=== PATIENT | male | born 1945 | race Caucasian/White ===

== ENCOUNTER 2016-07-22 14:49 | Inpatient (IN) ==
[2016-07-22] MEDS ORDERED: *HR* OxyCODONE Immed Rel 5 MG TABLET PO PRN (16:17)
[2016-07-22] MEDS ORDERED: METAXALONE 400 MG PO PRN (17:08)
[2016-07-22] MEDS ORDERED: Ondansetron ODT 4 MG TAB.RAPDIS SL PRN (17:19)
[2016-07-22] MEDS: Gabapentin 300 MG CAPSULE PO SCH (20:41)
[2016-07-22] MEDS: Lactulose Oral Soln 20 GM/30 ML UDC PO SCH (20:41)
[2016-07-22] MEDS: Sennosides/Docusate Sodium TABLET PO SCH (20:41)
[2016-07-22] MEDS: BETHANECHOL 10 MG PO SCH (20:45)
[2016-07-22] MEDS: RIFAXIMIN 550 MG PO SCH (20:46)
[2016-07-22] MEDS: *HR* OxyCODONE Immed Rel 5 MG TABLET PO PRN (21:01)
[2016-07-23] MEDS: *HR* OxyCODONE Immed Rel 5 MG TABLET PO PRN ×4 (05:39→19:58)
[2016-07-23 06:30] LABS: Basophils % 0.3 %; Eosinophils # 0.3 K/mcL (0.0-0.6); Eosinophils % 4.4 %; Hematocrit 30.2 % (37.5-50.1); Hemoglobin 10.4 g/dL (12.9-16.9); Immature Granulocytes % 0.7 % (0-4); Lymphocytes # 1.4 K/mcL (0.6-4.6); Lymphocytes % 20.6 %; Mean Corpuscular HGB Conc 34.4 g/dL (31.6-35.5); Mean Corpuscular Hemoglobin 31.4 pg (28.0-33.3); Mean Corpuscular Volume 91.2 fL (83.0-100.0); Mean Platelet Volume 11.1 fL (9.4-12.4); Monocytes # 0.5 K/mcL (0.0-1.3); Neutrophils # 4.6 K/mcL (1.6-8.9); Red Blood Count 3.31 M/mcL (4.19-5.50); Red Cell Distribution Width 14.3 % (11.5-14.5)
[2016-07-23 06:36] LABS: INR 1.3
[2016-07-23 06:39] LABS: Activated Partial Thrombo Time 29.9 Seconds (26.0-36.0)
[2016-07-23 06:48] LABS: BUN/Creatinine Ratio 14 (6-26); Blood Urea Nitrogen 16 mg/dL (8-26); Calcium 9.3 mg/dL (8.6-10.8); Carbon Dioxide 27 mEq/L (19-29); Chloride 99 mEq/L (98-109); Glucose 106 mg/dL (70-99); Osmolality,Calculated 282 (280-300); Potassium 4.1 mEq/L (3.5-4.5); Sodium 135 mEq/L (136-145); eGFR For African Americans > 60 (> 60); eGFR For Non-African Americans > 60 (> 60)
[2016-07-23 06:53] LABS: Platelet Count 72 K/mcL (140-400)
[2016-07-23 07:02] LABS: Platelet Estimate Decreased (Normal)
[2016-07-23] MEDS: Lactulose Oral Soln 20 GM/30 ML UDC PO SCH ×2 (08:17→20:00)
[2016-07-23] MEDS: Spironolactone 25 MG TABLET PO SCH (08:18)
[2016-07-23] MEDS: Cholecalciferol (D-3) 1,000 UNIT TABLET PO SCH (08:18)
[2016-07-23] MEDS: Multivit/Ca/Min/Fe/FA 1 TAB TABLET PO SCH (08:18)
[2016-07-23] MEDS: Sennosides/Docusate Sodium TABLET PO SCH ×2 (08:18→19:57)
[2016-07-23] MEDS: BETHANECHOL 10 MG PO SCH ×3 (08:19→20:02)
[2016-07-23] MEDS: Furosemide 20 MG TABLET PO SCH (08:19)
[2016-07-23] MEDS: Finasteride 5 MG TABLET PO SCH (08:19)
[2016-07-23] MEDS: Gabapentin 300 MG CAPSULE PO SCH ×2 (08:19→19:57)
[2016-07-23] MEDS: RIFAXIMIN 550 MG PO SCH ×2 (08:20→20:02)
[2016-07-23] MEDS ORDERED: Celecoxib 100 MG CAPSULE PO SCH (09:00)
[2016-07-23] MEDS: Ibuprofen 600 MG TABLET PO PRN ×2 (12:41→18:53)
--- NOTE | 2016-07-23 20:35 | Internal Med History&Physical ---
Date of Encounter: 07/23/16 Time of Encounter: 20:28 Assessment and Plan (1) Lumbar stenosis Current visit: Yes Status: Acute Status post lumbar laminectomy, discussed pain control with the new guidelines. We will increase the gabapentin continue the Flexeril increase the Celebrex to use short acting oxycodone IR because of his liver issues (2) Bilateral radicular pain Current visit: Yes Status: Acute We will increase the Neurontin hopefully as time progressed to improve since he had surgery (3) Cirrhosis Current visit: Yes Status: Acute Continue the lactulose and start the rifaximin is on a home. If we do not carry it making using his home medicines Qualifiers: Hepatic cirrhosis type: unspecified hepatic cirrhosis Ascites presence: without ascites Qualified Code(s): K74.60 - Unspecified cirrhosis of liver (4) SCOT on CPAP Current visit: Yes Status: Acute Continue CPAP (5) GERD (gastroesophageal reflux disease) Current visit: Yes Status: Acute Continue omeprazole Qualifiers: Esophagitis presence: esophagitis presence not specified Qualified Code(s) : K21.9 - Gastro-esophageal reflux disease without esophagitis Internal Medicine - H&P: HPI Chief complaint: Lumbar fusion Admitted From: Hospital to Hospital Transfer Plans for Post Hospital Care: Home History of present illness: Mr. Irizarry is a 71 year old male was admitted to swing bed after having laminectomy. Currently right before surgery he woke up in the morning just could not move his left leg was weak he was seen at [facility] by Dr. Bennett who showed vice MRI that he had a severe stenosis. Collapse of L2 vertebrae. The surgery is helped a little and his strength is improving. He still has pain reports his pain is better not tenderness of 45 out 10 with the oxycodone 10 mg tablets. Apparently for failed back syndrome he was on oxycodone 15 mg every 6 hours at home before surgery. Had long discussion about the new guidelines for opioid prescriptions and controlled substances. Patient is a 10 heil was dying every 5 hours maximally overdosing. The first goal is to get people to chronic pain under more 80 morphine equivalent dose. The second goal which was about 4 months ago was to get the morphine equivalent dose below 50 left someone had a surgery they could have acute pain medicine for about 7 days. In his listen they were not too happy with the new guidelines. By time explaining that all they seem accepting. He is going to increase the Celebrex to twice a day and increase his Neurontin. Visit was extended explaining this. He reports dyspnea on exertion weakness fatigue and heart hearing. Eyes any chest pain shortness of breath at rest nausea vomiting diarrhea fevers chills headache bleeds rest review of systems is negative. Amylase on lactulose and Xifaxan. Past Med Surg Social Fam HX - Past Medical History Source: patient, old records reviewed, obtained from family Medical history: arthritis, cirrhosis, GERD, hyperlipidemia, hypertension, other (Esophageal varices, BPH, SCOT with CPAP, failed back syndrome) Psychiatric history: no psych history - Past Surgical History Surgical History: appendectomy, cataract (Bilateral), orthopedic, other (Right thumb tendon repair left shoulder repair, left knee arthroscopy for back surgeries), other (Cardiac catheterization 2013 were normal and a colonoscopy in 2013 showed polyps, tonsillectomy) - Social History Smoking Status: Former smoker Smokeless Tobacco Status: No Alcohol use: none Drug use: other (Daily caffeine use,,Because caffeine is a stimulant and makes one feel a boost of energy by tapping into ones reserve energy, it can lead to anxiety and panic attacks. When used routiely, it interferes with deep sleep, so the reserve energy isn't being replaced effectively which leads to tiredness , depression, higher risk of infection. I recommend patients gives up daily use. ) Occupational status: employed Current living situation: Home - Independent Activity Level: Uses cane/walker - Family History Father Cause of : [place] Mother Cause of : Stroke Internal Medicine - H&P: Meds Allergies gabapentin Adverse Reaction (Verified 10/03/15 15:05) Palpitations Penicillins Adverse Reaction (Verified 10/03/15 15:05) Hives Sulfa (Sulfonamide Antibiotics) Adverse Reaction (Verified 10/03/15 15:05) Hives All Systems PM: A 10-system review of systems was performed and is negative for pertinent findings except as documented above in the HPI. - Constitutional Vitals: Temp Pulse Resp BP Pulse Ox 98.3 F 80 18 120/74 96 07/23/16 19:37 07/23/16 19:37 07/23/16 19:37 07/23/16 19:37 07/23/16 19:37 - Head Head exam: Present: atraumatic, normocephalic - Eye Eye exam: Present: PERRL, conjuntiva pink, sclera anicteric Pupils: Present: PERRL - Neck Neck exam general surgery: Present: supple, trachea midline. Absent: lymphadenopathy - Respiratory Respiratory exam: Present: CTAB. Absent: accessory muscle use, rales, rhonchi, wheezes - Cardiovascular Cardiovascular exam: Present: RRR, +S1, +S2. Absent: diastolic murmur, gallop, rubs, systolic murmur - GI/Abdominal GI/Abdominal exam: Present: normal bowel sounds, soft, no peritoneal signs. Absent: distended, tenderness - Extremities Exam Extremities exam: Present: warm. Absent: calf tenderness, cyanotic, pedal edema - Neurological Exam Neurological exam: Present: CN II-XII intact, oriented X3, no focal deficits. Absent: facial droop, speech deficit - Skin Skin exam: Present: dry, intact Additional comments: Incision bandage is clean Internal Med - H&P Results - Labs CBC & Chem 7: 07/23/16 05:31 07/23/16 05:31 Labs: Short CBC 07/23/16 Range/Units 05:31 WBC 6.8 (4.3-11.1) K/mcL Hgb 10.4 L (12.9-16.9) g/dL Hct 30.2 L (37.5-50.1) % Plt Count 72 L (140-400) K/mcL Neutrophils # 4.6 (1.6-8.9) K/mcL BMP 07/23/16 05:31 Sodium 135 L Potassium 4.1 Chloride 99 Carbon Dioxide 27 BUN 16 Creatinine 1.12 Glucose 106 H Calcium 9.3
[2016-07-24] MEDS: Gabapentin 300 MG CAPSULE PO SCH ×4 (00:03→20:28)
[2016-07-24] MEDS: *HR* OxyCODONE Immed Rel 5 MG TABLET PO PRN ×6 (00:03→20:27)
[2016-07-24] MEDS: Celecoxib 100 MG CAPSULE PO SCH ×3 (00:04→20:32)
[2016-07-24 05:28] LABS: Hematocrit 29.7 % (37.5-50.1); Hemoglobin 10.2 g/dL (12.9-16.9); Immature Granulocytes % 0.9 % (0-4); Lymphocytes % 19.3 %; Mean Corpuscular HGB Conc 34.3 g/dL (31.6-35.5); Mean Corpuscular Hemoglobin 31.1 pg (28.0-33.3); Mean Corpuscular Volume 90.5 fL (83.0-100.0); Mean Platelet Volume 10.7 fL (9.4-12.4); Red Blood Count 3.28 M/mcL (4.19-5.50); Segmented Neutrophils % 64.6 %
[2016-07-24 05:29] LABS: Basophils % 0.4 %; Eosinophils # 0.3 K/mcL (0.0-0.6); Eosinophils % 5.8 %; Lymphocytes # 1.1 K/mcL (0.6-4.6); Monocytes # 0.5 K/mcL (0.0-1.3); Neutrophils # 3.6 K/mcL (1.6-8.9)
[2016-07-24 05:44] LABS: Platelet Count 76 K/mcL (140-400)
[2016-07-24 05:45] LABS: BUN/Creatinine Ratio 15 (6-26); Blood Urea Nitrogen 16 mg/dL (8-26); Calcium 9.3 mg/dL (8.6-10.8); Carbon Dioxide 26 mEq/L (19-29); Chloride 102 mEq/L (98-109); Glucose 122 mg/dL (70-99); Osmolality,Calculated 284 (280-300); Potassium 3.9 mEq/L (3.5-4.5); Sodium 136 mEq/L (136-145); eGFR For African Americans > 60 (> 60); eGFR For Non-African Americans > 60 (> 60)
[2016-07-24] MEDS: Multivit/Ca/Min/Fe/FA 1 TAB TABLET PO SCH (08:19)
[2016-07-24] MEDS: Finasteride 5 MG TABLET PO SCH (08:19)
[2016-07-24] MEDS: Cholecalciferol (D-3) 1,000 UNIT TABLET PO SCH (08:20)
[2016-07-24] MEDS: Sennosides/Docusate Sodium TABLET PO SCH ×2 (08:21→20:28)
[2016-07-24] MEDS: Spironolactone 25 MG TABLET PO SCH (08:22)
[2016-07-24] MEDS: Lactulose Oral Soln 20 GM/30 ML UDC PO SCH ×2 (08:23→20:28)
[2016-07-24] MEDS: Furosemide 20 MG TABLET PO SCH (08:23)
[2016-07-24] MEDS: RIFAXIMIN 550 MG PO SCH ×2 (10:49→22:34)
[2016-07-24] MEDS: BETHANECHOL 10 MG PO SCH ×3 (10:50→22:34)
--- NOTE | 2016-07-24 14:11 | Internal Med Progress Note ---
Date of Encounter: 07/24/16 Time of Encounter: 14:00 - Assessment and plan (1) Lumbar stenosis Current Visit: Yes Status: Acute Assessment and plan: July 24. Status post laminectomy with L5-S1 with fusion 07/14/2016. I will continue Celebrex and gabapentin. Will add OxyContin and continue when necessary oxycodone IR. (2) Anemia Current Visit: Yes Status: Acute Assessment and plan: July 24. Will order anemia testing in a.m. Suspect due at least in part to cirrhosis. Thrombocytopenia is also noted. Qualifiers: Anemia type: unspecified type Qualified Code(s): D64.9 - Anemia, unspecified (3) Cirrhosis Current Visit: Yes Status: Acute Assessment and plan: July 24. Continue Xifaxan and lactulose. I will decrease HCTZ to 25 mg daily. Labs will be rechecked in a.m. Qualifiers: Hepatic cirrhosis type: unspecified hepatic cirrhosis Ascites presence: without ascites Qualified Code(s): K74.60 - Unspecified cirrhosis of liver - Subjective Interval history: July 24. He reports having significant pain in his low back when he attempts to move. - Constitutional Vitals: Temp Pulse Resp BP Pulse Ox 98.0 F 82 20 117/75 96 07/24/16 07:01 07/24/16 13:51 07/24/16 13:51 07/24/16 13:51 07/24/16 13:51 Exam: He is resting in bed and appears to be in mild pain at present. His heart is regular without murmurs gallops or ectopics. Lungs are clear anteriorly. Extremities show no edema. I reviewed his past records from [facility] and his present medications and lab results. Internal Medicine: Result - Labs CBC & Chem 7: 07/24/16 05:18 07/24/16 05:18 Labs: Short CBC 07/24/16 Range/Units 05:18 WBC 5.5 (4.3-11.1) K/mcL Hgb 10.2 L (12.9-16.9) g/dL Hct 29.7 L (37.5-50.1) % Plt Count 76 L (140-400) K/mcL Neutrophils # 3.6 (1.6-8.9) K/mcL BMP 07/24/16 05:18 Sodium 136 Potassium 3.9 Chloride 102 Carbon Dioxide 26 BUN 16 Creatinine 1.04 Glucose 122 H Calcium 9.3 - ABG Interpretation ABG results: PT/INR, D-dimer PT 14.0 Seconds (9.4-12.1) H 07/23/16 05:31 Consult Discharge Plan - Plan Referrals: Edward Nieto MD [Primary Care Provider] - 1 week
[2016-07-24] MEDS: *HR* OxyCODONE ER (12 HR) 10 MG TABLET PO SCH (18:10)
[2016-07-25 05:23] LABS: Basophils % 0.5 %; Eosinophils # 0.4 K/mcL (0.0-0.6); Eosinophils % 6.7 %; Hematocrit 31.1 % (37.5-50.1); Hemoglobin 10.7 g/dL (12.9-16.9); Immature Granulocytes % 0.9 % (0-4); Lymphocytes # 1.4 K/mcL (0.6-4.6); Lymphocytes % 22.6 %; Mean Corpuscular HGB Conc 34.4 g/dL (31.6-35.5); Mean Corpuscular Hemoglobin 31.1 pg (28.0-33.3); Mean Corpuscular Volume 90.4 fL (83.0-100.0); Mean Platelet Volume 10.5 fL (9.4-12.4); Monocytes # 0.6 K/mcL (0.0-1.3); Monocytes % 9.4 %; Neutrophils # 3.8 K/mcL (1.6-8.9); Red Blood Count 3.44 M/mcL (4.19-5.50); Red Cell Distribution Width 14.2 % (11.5-14.5); Segmented Neutrophils % 59.9 %
[2016-07-25 05:24] LABS: Platelet Count 99 K/mcL (140-400)
[2016-07-25 05:29] LABS: Magnesium 1.4 mg/dL (1.6-2.6)
[2016-07-25] MEDS: *HR* OxyCODONE ER (12 HR) 10 MG TABLET PO SCH ×2 (06:41→17:41)
[2016-07-25] MEDS: *HR* OxyCODONE Immed Rel 5 MG TABLET PO PRN ×4 (08:26→22:35)
[2016-07-25] MEDS: Spironolactone 25 MG TABLET PO SCH (08:28)
[2016-07-25] MEDS: Lactulose Oral Soln 20 GM/30 ML UDC PO SCH ×2 (08:28→22:26)
[2016-07-25] MEDS: Multivit/Ca/Min/Fe/FA 1 TAB TABLET PO SCH (08:29)
[2016-07-25] MEDS: Celecoxib 100 MG CAPSULE PO SCH ×2 (08:29→22:26)
[2016-07-25] MEDS: Gabapentin 300 MG CAPSULE PO SCH ×3 (08:29→22:25)
[2016-07-25] MEDS: Furosemide 20 MG TABLET PO SCH (08:30)
[2016-07-25] MEDS: Sennosides/Docusate Sodium TABLET PO SCH ×2 (08:30→22:25)
[2016-07-25] MEDS: RIFAXIMIN 550 MG PO SCH ×2 (08:31→22:26)
[2016-07-25] MEDS: Cholecalciferol (D-3) 1,000 UNIT TABLET PO SCH (08:31)
[2016-07-25] MEDS: Finasteride 5 MG TABLET PO SCH (08:31)
[2016-07-25] MEDS: BETHANECHOL 10 MG PO SCH ×3 (08:31→22:26)
[2016-07-25 15:09] LABS: Folate 11.9 ng/mL (7.0-31.4)
[2016-07-25 15:10] LABS: Vitamin B12 > 2000 pg/mL (213-816)
[2016-07-26] MEDS: *HR* OxyCODONE Immed Rel 5 MG TABLET PO PRN ×4 (03:50→21:18)
[2016-07-26] MEDS: *HR* OxyCODONE ER (12 HR) 10 MG TABLET PO SCH ×2 (05:44→18:13)
[2016-07-26] MEDS: Spironolactone 25 MG TABLET PO SCH (09:16)
[2016-07-26] MEDS: Celecoxib 100 MG CAPSULE PO SCH ×2 (09:17→21:23)
[2016-07-26] MEDS: Lactulose Oral Soln 20 GM/30 ML UDC PO SCH ×2 (09:18→21:23)
[2016-07-26] MEDS: BETHANECHOL 10 MG PO SCH (09:19)
[2016-07-26] MEDS: Gabapentin 300 MG CAPSULE PO SCH ×3 (09:19→21:18)
[2016-07-26] MEDS: Furosemide 20 MG TABLET PO SCH (09:19)
[2016-07-26] MEDS: RIFAXIMIN 550 MG PO SCH (09:21)
[2016-07-26] MEDS: Finasteride 5 MG TABLET PO SCH (09:22)
[2016-07-26] MEDS: Sennosides/Docusate Sodium TABLET PO SCH ×2 (09:22→21:18)
[2016-07-26] MEDS: Multivit/Ca/Min/Fe/FA 1 TAB TABLET PO SCH (09:23)
[2016-07-26] MEDS: Cholecalciferol (D-3) 1,000 UNIT TABLET PO SCH (09:23)
--- NOTE | 2016-07-26 11:42 | Internal Med Progress Note ---
Date of Encounter: 07/26/16 Time of Encounter: 11:30 - Assessment and plan (1) Lumbar stenosis Current Visit: Yes Status: Acute Assessment and plan: July 24. Status post laminectomy with L5-S1 with fusion 07/14/2016. I will continue Celebrex and gabapentin. Will add OxyContin and continue when necessary oxycodone IR. July 26. Will increase OxyContin to 20 mg twice a day and continue other medicines as per present regimen. (2) Anemia Current Visit: Yes Status: Acute Assessment and plan: July 24. Will order anemia testing in a.m. Suspect due at least in part to cirrhosis. Thrombocytopenia is also noted. July 26. Anemia testing of July 25 reviewed. Continue to monitor CBC. Qualifiers: Anemia type: unspecified type Qualified Code(s): D64.9 - Anemia, unspecified (3) Cirrhosis Current Visit: Yes Status: Acute Assessment and plan: July 24. Continue Xifaxan and lactulose. I will decrease HCTZ to 25 mg daily. Labs will be rechecked in a.m. July 26. We will decrease HCTZ to 12.5 mg daily. Qualifiers: Hepatic cirrhosis type: unspecified hepatic cirrhosis Ascites presence: without ascites Qualified Code(s): K74.60 - Unspecified cirrhosis of liver (4) Hypomagnesemia Current Visit: Yes Status: Acute Assessment and plan: July 26. Probably secondary to HCTZ use. Will give supplemental magnesium oxide and decrease HCTZ as per above. - Subjective Interval history: July 24. He reports having significant pain in his low back when he attempts to move. July 26. He reports significant pain persists - Constitutional Vitals: Temp Pulse Resp BP Pulse Ox 98.7 F 87 16 122/75 93 L 07/26/16 09:14 07/26/16 09:14 07/26/16 09:14 07/26/16 09:14 07/26/16 09:14 Exam: He is lying in bed and does not appear comfortable. His speech is appropriate. He is wearing SCDs. I reviewed his medications and lab results. Internal Medicine: Result - Labs CBC & Chem 7: 07/25/16 05:09 07/24/16 05:18 - ABG Interpretation ABG results: PT/INR, D-dimer PT 14.0 Seconds (9.4-12.1) H 07/23/16 05:31 - VTE Documentation of Mechanical Device: Intermittent pneumatic compression device Consult Discharge Plan - Plan Referrals: Edward Nieto MD [Primary Care Provider] - 1 week
[2016-07-26] MEDS: Magnesium Oxide 400 MG TABLET PO SCH (14:08)
[2016-07-27] MEDS: *HR* OxyCODONE ER (12 HR) 10 MG TABLET PO SCH ×2 (06:09→18:24)
[2016-07-27] MEDS: *HR* OxyCODONE Immed Rel 5 MG TABLET PO PRN ×4 (06:09→19:30)
[2016-07-27] MEDS: Lactulose Oral Soln 20 GM/30 ML UDC PO SCH ×2 (10:40→21:28)
[2016-07-27] MEDS: Sennosides/Docusate Sodium TABLET PO SCH ×2 (10:41→21:28)
[2016-07-27] MEDS: Finasteride 5 MG TABLET PO SCH (10:41)
[2016-07-27] MEDS: Gabapentin 300 MG CAPSULE PO SCH ×3 (10:41→21:28)
[2016-07-27] MEDS: Multivit/Ca/Min/Fe/FA 1 TAB TABLET PO SCH (10:42)
[2016-07-27] MEDS: Spironolactone 25 MG TABLET PO SCH (10:42)
[2016-07-27] MEDS: Furosemide 20 MG TABLET PO SCH (10:42)
[2016-07-27] MEDS: Magnesium Oxide 400 MG TABLET PO SCH (10:42)
[2016-07-27] MEDS: Cholecalciferol (D-3) 1,000 UNIT TABLET PO SCH (10:43)
[2016-07-27] MEDS: Celecoxib 100 MG CAPSULE PO SCH (10:43)
--- NOTE | 2016-07-27 15:07 | Internal Med Progress Note ---
Date of Encounter: 07/27/16 Time of Encounter: 14:55 - Assessment and plan (1) Lumbar stenosis Current Visit: Yes Status: Acute Assessment and plan: July 24. Status post laminectomy with L5-S1 with fusion 07/14/2016. I will continue Celebrex and gabapentin. Will add OxyContin and continue when necessary oxycodone IR. July 26. Will increase OxyContin to 20 mg twice a day and continue other medicines as per present regimen. July 27. Will continue present dose OxyContin. We will change from Celebrex to Naprosyn and add Lidoderm patch daily. (2) Anemia Current Visit: Yes Status: Acute Assessment and plan: July 24. Will order anemia testing in a.m. Suspect due at least in part to cirrhosis. Thrombocytopenia is also noted. July 26. Anemia testing of July 25 reviewed. Continue to monitor CBC. Qualifiers: Anemia type: unspecified type Qualified Code(s): D64.9 - Anemia, unspecified (3) Cirrhosis Current Visit: Yes Status: Acute Assessment and plan: July 24. Continue Xifaxan and lactulose. I will decrease HCTZ to 25 mg daily. Labs will be rechecked in a.m. July 26. We will decrease HCTZ to 12.5 mg daily. July 27. His weight remains stable. Continue present regimen Qualifiers: Hepatic cirrhosis type: unspecified hepatic cirrhosis Ascites presence: without ascites Qualified Code(s): K74.60 - Unspecified cirrhosis of liver (4) Hypomagnesemia Current Visit: Yes Status: Acute Assessment and plan: July 26. Probably secondary to HCTZ use. Will give supplemental magnesium oxide and decrease HCTZ as per above. - Subjective Interval history: July 24. He reports having significant pain in his low back when he attempts to move. July 26. He reports significant pain persists July 27. He still has pain in his low back area. - Constitutional Vitals: Temp Pulse Resp BP Pulse Ox 98.3 F 84 18 129/69 93 L 07/27/16 07:22 07/27/16 10:43 07/27/16 10:43 07/27/16 10:43 07/27/16 10:43 Exam: He is lying in bed and appears in mild distress. He states there is pain when he moves his right leg. I reviewed his medications and lab results. Internal Medicine: Result - Labs CBC & Chem 7: 07/25/16 05:09 07/24/16 05:18 - ABG Interpretation ABG results: PT/INR, D-dimer PT 14.0 Seconds (9.4-12.1) H 07/23/16 05:31 - VTE Documentation of Mechanical Device: Intermittent pneumatic compression device Consult Discharge Plan - Plan Referrals: Edward Nieto MD [Primary Care Provider] - 1 week
[2016-07-28] MEDS: *HR* OxyCODONE Immed Rel 5 MG TABLET PO PRN ×5 (01:12→20:18)
[2016-07-28 05:32] LABS: Basophils % 0.5 %; Eosinophils # 0.4 K/mcL (0.0-0.6); Eosinophils % 8.8 %; Hemoglobin 9.7 g/dL (12.9-16.9); Immature Granulocytes % 0.7 % (0-4); Lymphocytes % 22.6 %; Mean Corpuscular HGB Conc 34.6 g/dL (31.6-35.5); Mean Corpuscular Hemoglobin 30.9 pg (28.0-33.3); Mean Corpuscular Volume 89.2 fL (83.0-100.0); Monocytes # 0.6 K/mcL (0.0-1.3); Neutrophils # 2.4 K/mcL (1.6-8.9); Platelet Count 119 K/mcL (140-400); Red Blood Count 3.14 M/mcL (4.19-5.50); Segmented Neutrophils % 53.4 %
[2016-07-28 05:48] LABS: Magnesium 1.8 mg/dL (1.6-2.6); Uric Acid 5.3 mg/dL (3.5-7.2)
[2016-07-28] MEDS: *HR* OxyCODONE ER (12 HR) 10 MG TABLET PO SCH ×2 (06:09→17:46)
[2016-07-28] MEDS: Multivit/Ca/Min/Fe/FA 1 TAB TABLET PO SCH (08:18)
[2016-07-28] MEDS: Gabapentin 300 MG CAPSULE PO SCH ×2 (08:18→14:38)
[2016-07-28] MEDS: Cholecalciferol (D-3) 1,000 UNIT TABLET PO SCH (08:19)
[2016-07-28] MEDS: Spironolactone 25 MG TABLET PO SCH (08:19)
[2016-07-28] MEDS: Lactulose Oral Soln 20 GM/30 ML UDC PO SCH ×2 (08:20→20:18)
[2016-07-28] MEDS: Furosemide 20 MG TABLET PO SCH (08:23)
[2016-07-28] MEDS: Magnesium Oxide 400 MG TABLET PO SCH (08:23)
[2016-07-28] MEDS: Finasteride 5 MG TABLET PO SCH (08:24)
[2016-07-28] MEDS: Sennosides/Docusate Sodium TABLET PO SCH ×2 (08:24→20:17)
[2016-07-29] MEDS: *HR* OxyCODONE Immed Rel 5 MG TABLET PO PRN ×6 (00:41→21:04)
[2016-07-29] MEDS: *HR* OxyCODONE ER (12 HR) 10 MG TABLET PO SCH ×2 (05:02→18:05)
[2016-07-29] MEDS: Lactulose Oral Soln 20 GM/30 ML UDC PO SCH ×2 (08:07→21:04)
[2016-07-29] MEDS: Multivit/Ca/Min/Fe/FA 1 TAB TABLET PO SCH (08:08)
[2016-07-29] MEDS: Spironolactone 25 MG TABLET PO SCH (08:08)
[2016-07-29] MEDS: Finasteride 5 MG TABLET PO SCH (08:09)
[2016-07-29] MEDS: Cholecalciferol (D-3) 1,000 UNIT TABLET PO SCH (08:09)
[2016-07-29] MEDS: Furosemide 20 MG TABLET PO SCH (08:09)
[2016-07-29] MEDS: Magnesium Oxide 400 MG TABLET PO SCH (08:10)
[2016-07-29] MEDS: Sennosides/Docusate Sodium TABLET PO SCH ×2 (11:57→21:04)
[2016-07-30] MEDS: *HR* OxyCODONE Immed Rel 5 MG TABLET PO PRN ×4 (01:12→20:13)
[2016-07-30] MEDS: *HR* OxyCODONE ER (12 HR) 10 MG TABLET PO SCH ×3 (06:08→22:06)
[2016-07-30] MEDS: Lactulose Oral Soln 20 GM/30 ML UDC PO SCH ×2 (09:33→22:07)
[2016-07-30] MEDS: Spironolactone 25 MG TABLET PO SCH (09:34)
[2016-07-30] MEDS: Cholecalciferol (D-3) 1,000 UNIT TABLET PO SCH (09:34)
[2016-07-30] MEDS: Furosemide 20 MG TABLET PO SCH (09:35)
[2016-07-30] MEDS: Multivit/Ca/Min/Fe/FA 1 TAB TABLET PO SCH (09:35)
[2016-07-30] MEDS: Magnesium Oxide 400 MG TABLET PO SCH (09:35)
[2016-07-30] MEDS: Finasteride 5 MG TABLET PO SCH (09:36)
--- NOTE | 2016-07-30 10:29 | Internal Med Progress Note ---
Date of Encounter: 07/30/16 Time of Encounter: 10:15 - Assessment and plan (1) Lumbar stenosis Current Visit: Yes Status: Acute Assessment and plan: July 24. Status post laminectomy with L5-S1 with fusion 07/14/2016. I will continue Celebrex and gabapentin. Will add OxyContin and continue when necessary oxycodone IR. July 26. Will increase OxyContin to 20 mg twice a day and continue other medicines as per present regimen. July 27. Will continue present dose OxyContin. We will change from Celebrex to Naprosyn and add Lidoderm patch daily. July 30. We will increase OxyContin to every 8 hours. Will increase prn oxycodone IR to 15 mg every 4 hours and restart lower dose Neurontin. He is scheduled to see his back surgeon at an office visit today in [place]. (2) Anemia Current Visit: Yes Status: Acute Assessment and plan: July 24. Will order anemia testing in a.m. Suspect due at least in part to cirrhosis. Thrombocytopenia is also noted. July 26. Anemia testing of July 25 reviewed. Continue to monitor CBC. Qualifiers: Anemia type: unspecified type Qualified Code(s): D64.9 - Anemia, unspecified (3) Cirrhosis Current Visit: Yes Status: Acute Assessment and plan: July 24. Continue Xifaxan and lactulose. I will decrease HCTZ to 25 mg daily. Labs will be rechecked in a.m. July 26. We will decrease HCTZ to 12.5 mg daily. July 27. His weight remains stable. Continue present regimen Qualifiers: Hepatic cirrhosis type: unspecified hepatic cirrhosis Ascites presence: without ascites Qualified Code(s): K74.60 - Unspecified cirrhosis of liver (4) Hypomagnesemia Current Visit: Yes Status: Acute Assessment and plan: July 26. Probably secondary to HCTZ use. Will give supplemental magnesium oxide and decrease HCTZ as per above. July 30. Magnesium level was normal at 1.8 on July 28. Continue magnesium oxide and monitor labs - Subjective Interval history: July 24. He reports having significant pain in his low back when he attempts to move. July 26. He reports significant pain persists July 27. He still has pain in his low back area. July 30. He states his low back pain and hip pain has not improved and perhaps worsening. - Constitutional Vitals: Temp Pulse Resp BP Pulse Ox 98.4 F 78 16 120/62 94 L 07/30/16 07:10 07/30/16 07:10 07/30/16 07:10 07/30/16 07:10 07/30/16 07:10 Exam: He appears in significant discomfort lying in bed. I reviewed his medications, labs, and hip CT report. Internal Medicine: Result - Labs CBC & Chem 7: 07/28/16 05:15 07/24/16 05:18 - ABG Interpretation ABG results: PT/INR, D-dimer PT 14.0 Seconds (9.4-12.1) H 07/23/16 05:31 - Impressions Impressions Hip CT 07/29/16 16:42 IMPRESSION: No acute osseous injury of the right hip. Mild osteoarthritis of the hips. D/ / Reji Anderson MD / Reji Anderson MD Interpreting Provider: Reji Anderson MD - VTE Documentation of Mechanical Device: Intermittent pneumatic compression device Consult Discharge Plan - Plan Referrals: Edward Nieto MD [Primary Care Provider] - 1 week
[2016-07-30] MEDS: Gabapentin 100 MG CAPSULE PO SCH ×2 (13:21→20:12)
[2016-07-30] MEDS: Sennosides/Docusate Sodium TABLET PO SCH ×2 (13:21→22:07)
[2016-07-30] MEDS: Ibuprofen 800 MG TABLET PO PRN (22:07)
[2016-07-31] MEDS: *HR* OxyCODONE ER (12 HR) 10 MG TABLET PO SCH ×3 (02:45→18:16)
[2016-07-31] MEDS: Gabapentin 100 MG CAPSULE PO SCH ×3 (02:45→18:17)
[2016-07-31] MEDS: *HR* OxyCODONE Immed Rel 5 MG TABLET PO PRN ×4 (06:01→21:41)
[2016-07-31] MEDS ORDERED: MethylPREDNISolone 4 MG TABLET PO SCH (07:00)
[2016-07-31] MEDS ORDERED: MethylPREDNISolone 4 MG TABLET PO ONE (09:00)
[2016-07-31] MEDS: Lactulose Oral Soln 20 GM/30 ML UDC PO SCH ×2 (09:46→21:44)
[2016-07-31] MEDS: Cholecalciferol (D-3) 1,000 UNIT TABLET PO SCH (09:47)
[2016-07-31] MEDS: Finasteride 5 MG TABLET PO SCH (09:48)
[2016-07-31] MEDS: Ibuprofen 800 MG TABLET PO PRN ×2 (09:48→21:42)
[2016-07-31] MEDS: Magnesium Oxide 400 MG TABLET PO SCH (09:48)
[2016-07-31] MEDS: Spironolactone 25 MG TABLET PO SCH (09:48)
[2016-07-31] MEDS: Sennosides/Docusate Sodium TABLET PO SCH ×2 (09:48→21:44)
[2016-07-31] MEDS: Furosemide 20 MG TABLET PO SCH (09:49)
[2016-07-31] MEDS: Multivit/Ca/Min/Fe/FA 1 TAB TABLET PO SCH (09:49)
[2016-07-31] MEDS: MethylPREDNISolone 4 MG TABLET PO SCH ×3 (13:18→21:44)
[2016-08-01] MEDS: Gabapentin 100 MG CAPSULE PO SCH ×3 (02:17→18:40)
[2016-08-01] MEDS: *HR* OxyCODONE ER (12 HR) 10 MG TABLET PO SCH ×3 (02:17→18:41)
[2016-08-01] MEDS: *HR* OxyCODONE Immed Rel 5 MG TABLET PO PRN ×5 (04:20→21:51)
[2016-08-01] MEDS: MethylPREDNISolone 4 MG TABLET PO SCH ×4 (06:39→21:51)
[2016-08-01] MEDS: Ibuprofen 800 MG TABLET PO PRN ×3 (06:41→23:10)
[2016-08-01] MEDS: Lactulose Oral Soln 20 GM/30 ML UDC PO SCH ×2 (08:37→21:51)
[2016-08-01] MEDS: Magnesium Oxide 400 MG TABLET PO SCH (08:40)
[2016-08-01] MEDS: Furosemide 20 MG TABLET PO SCH (08:40)
[2016-08-01] MEDS: Cholecalciferol (D-3) 1,000 UNIT TABLET PO SCH (08:40)
[2016-08-01] MEDS: Sennosides/Docusate Sodium TABLET PO SCH ×2 (08:40→21:51)
[2016-08-01] MEDS: Spironolactone 25 MG TABLET PO SCH (08:40)
[2016-08-01] MEDS: Multivit/Ca/Min/Fe/FA 1 TAB TABLET PO SCH (08:40)
[2016-08-01] MEDS: Finasteride 5 MG TABLET PO SCH (08:41)
[2016-08-02] MEDS: Gabapentin 100 MG CAPSULE PO SCH ×3 (03:26→19:03)
[2016-08-02] MEDS: *HR* OxyCODONE ER (12 HR) 10 MG TABLET PO SCH ×3 (03:26→19:03)
[2016-08-02] MEDS: *HR* OxyCODONE Immed Rel 5 MG TABLET PO PRN ×4 (08:02→23:12)
[2016-08-02] MEDS: Lactulose Oral Soln 20 GM/30 ML UDC PO SCH ×2 (08:09→22:59)
[2016-08-02] MEDS: Multivit/Ca/Min/Fe/FA 1 TAB TABLET PO SCH (08:10)
[2016-08-02] MEDS: Magnesium Oxide 400 MG TABLET PO SCH (08:10)
[2016-08-02] MEDS: Furosemide 20 MG TABLET PO SCH (08:10)
[2016-08-02] MEDS: Sennosides/Docusate Sodium TABLET PO SCH ×2 (08:10→22:58)
[2016-08-02] MEDS: Spironolactone 25 MG TABLET PO SCH (08:10)
[2016-08-02] MEDS: Cholecalciferol (D-3) 1,000 UNIT TABLET PO SCH (08:10)
[2016-08-02] MEDS: Finasteride 5 MG TABLET PO SCH (08:10)
[2016-08-02] MEDS: MethylPREDNISolone 4 MG TABLET PO SCH ×4 (08:11→22:59)
[2016-08-02] MEDS: Ibuprofen 800 MG TABLET PO PRN (09:57)
--- NOTE | 2016-08-02 15:57 | Internal Med Progress Note ---
Date of Encounter: 08/02/16 Time of Encounter: 15:45 - Assessment and plan (1) Lumbar stenosis Current Visit: Yes Status: Acute Assessment and plan: July 24. Status post laminectomy with L5-S1 with fusion 07/14/2016. I will continue Celebrex and gabapentin. Will add OxyContin and continue when necessary oxycodone IR. July 26. Will increase OxyContin to 20 mg twice a day and continue other medicines as per present regimen. July 27. Will continue present dose OxyContin. We will change from Celebrex to Naprosyn and add Lidoderm patch daily. July 30. We will increase OxyContin to every 8 hours. Will increase prn oxycodone IR to 15 mg every 4 hours and restart lower dose Neurontin. He is scheduled to see his back surgeon at an office visit today in [place]. August 02. Continue present medication regimen. I will order CT of his LS spine. He reports plain x-ray of LSS was unremarkable in [place] (2) Anemia Current Visit: Yes Status: Acute Assessment and plan: July 24. Will order anemia testing in a.m. Suspect due at least in part to cirrhosis. Thrombocytopenia is also noted. July 26. Anemia testing of July 25 reviewed. Continue to monitor CBC. Qualifiers: Anemia type: unspecified type Qualified Code(s): D64.9 - Anemia, unspecified (3) Cirrhosis Current Visit: Yes Status: Acute Assessment and plan: July 24. Continue Xifaxan and lactulose. I will decrease HCTZ to 25 mg daily. Labs will be rechecked in a.m. July 26. We will decrease HCTZ to 12.5 mg daily. July 27. His weight remains stable. Continue present regimen Qualifiers: Hepatic cirrhosis type: unspecified hepatic cirrhosis Ascites presence: without ascites Qualified Code(s): K74.60 - Unspecified cirrhosis of liver (4) Hypomagnesemia Current Visit: Yes Status: Acute Assessment and plan: July 26. Probably secondary to HCTZ use. Will give supplemental magnesium oxide and decrease HCTZ as per above. July 30. Magnesium level was normal at 1.8 on July 28. Continue magnesium oxide and monitor labs - Subjective Interval history: July 24. He reports having significant pain in his low back when he attempts to move. July 26. He reports significant pain persists July 27. He still has pain in his low back area. July 30. He states his low back pain and hip pain has not improved and perhaps worsening. August 02. He saw the orthopedic spine surgeon last week. He received a prescription for ibuprofen prn, Medrol Dosepak, and a recommendation for right hip steroid injection. He has not received the steroid injection. He reports he is having pain in his right hip, knee, and down to the foot. It has not changed over several days except perhaps slightly lessened with a higher dose narcotics. There is also some occasional discomfort in his left leg and foot. - Constitutional Vitals: Temp Pulse Resp BP Pulse Ox 97.7 F 91 18 132/70 97 08/02/16 09:00 08/02/16 09:00 08/02/16 09:00 08/02/16 09:00 08/02/16 09:00 Exam: He appears in minimal discomfort while lying quietly in bed. His extremities show no pitting edema. I reviewed his medications and lab results. Internal Medicine: Result - Labs CBC & Chem 7: 07/28/16 05:15 07/24/16 05:18 - ABG Interpretation ABG results: PT/INR, D-dimer PT 14.0 Seconds (9.4-12.1) H 07/23/16 05:31 - VTE Documentation of Mechanical Device: Intermittent pneumatic compression device Consult Discharge Plan - Plan Referrals: Edward Nieto MD [Primary Care Provider] - 1 week
[2016-08-02] MEDS: Ibuprofen 800 MG TABLET PO SCH ×2 (16:53→22:58)
[2016-08-03] MEDS: *HR* OxyCODONE ER (12 HR) 10 MG TABLET PO SCH ×3 (03:23→18:14)
[2016-08-03] MEDS: Gabapentin 100 MG CAPSULE PO SCH ×3 (03:24→18:13)
[2016-08-03] MEDS: MethylPREDNISolone 4 MG TABLET PO SCH ×6 (03:24→21:45)
[2016-08-03] MEDS: *HR* OxyCODONE Immed Rel 5 MG TABLET PO PRN ×4 (05:08→21:45)
[2016-08-03] MEDS: Lactulose Oral Soln 20 GM/30 ML UDC PO SCH ×2 (09:01→21:44)
[2016-08-03] MEDS: Ibuprofen 800 MG TABLET PO SCH ×2 (09:03→16:06)
[2016-08-03] MEDS: Finasteride 5 MG TABLET PO SCH (09:07)
[2016-08-03] MEDS: Spironolactone 25 MG TABLET PO SCH (09:07)
[2016-08-03] MEDS: Multivit/Ca/Min/Fe/FA 1 TAB TABLET PO SCH (09:07)
[2016-08-03] MEDS: Magnesium Oxide 400 MG TABLET PO SCH (09:08)
[2016-08-03] MEDS: Cholecalciferol (D-3) 1,000 UNIT TABLET PO SCH (09:08)
[2016-08-03] MEDS: Sennosides/Docusate Sodium TABLET PO SCH ×2 (09:08→21:44)
[2016-08-03] MEDS: Furosemide 20 MG TABLET PO SCH (09:08)
[2016-08-04] MEDS: Ibuprofen 800 MG TABLET PO SCH ×3 (00:17→16:40)
[2016-08-04] MEDS: *HR* OxyCODONE Immed Rel 5 MG TABLET PO PRN ×5 (01:23→22:15)
[2016-08-04] MEDS: Gabapentin 100 MG CAPSULE PO SCH ×3 (03:05→16:40)
[2016-08-04] MEDS: *HR* OxyCODONE ER (12 HR) 10 MG TABLET PO SCH ×3 (03:05→16:41)
[2016-08-04] MEDS: Lactulose Oral Soln 20 GM/30 ML UDC PO SCH ×2 (09:03→22:15)
[2016-08-04] MEDS: Spironolactone 25 MG TABLET PO SCH (09:03)
[2016-08-04] MEDS: Sennosides/Docusate Sodium TABLET PO SCH ×2 (09:03→22:15)
[2016-08-04] MEDS: Cholecalciferol (D-3) 1,000 UNIT TABLET PO SCH (09:05)
[2016-08-04] MEDS: Magnesium Oxide 400 MG TABLET PO SCH (09:05)
[2016-08-04] MEDS: Multivit/Ca/Min/Fe/FA 1 TAB TABLET PO SCH (09:05)
[2016-08-04] MEDS: Finasteride 5 MG TABLET PO SCH (09:05)
[2016-08-04] MEDS: Furosemide 20 MG TABLET PO SCH (09:05)
[2016-08-04] MEDS: MethylPREDNISolone 4 MG TABLET PO SCH ×5 (12:06→22:14)
--- NOTE | 2016-08-04 15:54 | Internal Med Progress Note ---
Date of Encounter: 08/04/16 Time of Encounter: 15:30 - Assessment and plan (1) Lumbar stenosis Current Visit: Yes Status: Acute Assessment and plan: July 24. Status post laminectomy with L5-S1 with fusion 07/14/2016. I will continue Celebrex and gabapentin. Will add OxyContin and continue when necessary oxycodone IR. July 26. Will increase OxyContin to 20 mg twice a day and continue other medicines as per present regimen. July 27. Will continue present dose OxyContin. We will change from Celebrex to Naprosyn and add Lidoderm patch daily. July 30. We will increase OxyContin to every 8 hours. Will increase prn oxycodone IR to 15 mg every 4 hours and restart lower dose Neurontin. He is scheduled to see his back surgeon at an office visit today in [place]. August 02. Continue present medication regimen. I will order CT of his LS spine. He reports plain x-ray of LSS was unremarkable in [place] August 04. Will increase Neurontin and continue Motrin, OxyContin, oxycodone IR, and Medrol dosepak taper (2) Anemia Current Visit: Yes Status: Acute Assessment and plan: July 24. Will order anemia testing in a.m. Suspect due at least in part to cirrhosis. Thrombocytopenia is also noted. July 26. Anemia testing of July 25 reviewed. Continue to monitor CBC. August 04. Recheck labs in a.m. Qualifiers: Anemia type: unspecified type Qualified Code(s): D64.9 - Anemia, unspecified (3) Cirrhosis Current Visit: Yes Status: Acute Assessment and plan: July 24. Continue Xifaxan and lactulose. I will decrease HCTZ to 25 mg daily. Labs will be rechecked in a.m. July 26. We will decrease HCTZ to 12.5 mg daily. July 27. His weight remains stable. Continue present regimen Qualifiers: Hepatic cirrhosis type: unspecified hepatic cirrhosis Ascites presence: without ascites Qualified Code(s): K74.60 - Unspecified cirrhosis of liver (4) Hypomagnesemia Current Visit: Yes Status: Acute Assessment and plan: July 26. Probably secondary to HCTZ use. Will give supplemental magnesium oxide and decrease HCTZ as per above. July 30. Magnesium level was normal at 1.8 on July 28. Continue magnesium oxide and monitor labs August 04. Recheck labs in a.m. - Subjective Interval history: July 24. He reports having significant pain in his low back when he attempts to move. July 26. He reports significant pain persists July 27. He still has pain in his low back area. July 30. He states his low back pain and hip pain has not improved and perhaps worsening. August 02. He saw the orthopedic spine surgeon last week. He received a prescription for ibuprofen prn, Medrol Dosepak, and a recommendation for right hip steroid injection. He has not received the steroid injection. He reports he is having pain in his right hip, knee, and down to the foot. It has not changed over several days except perhaps slightly lessened with a higher dose narcotics. There is also some occasional discomfort in his left leg and foot. August 04. He reports his pain has not improved at all. He states it involves his low back, right hip, right knee, and extends down into the right foot. He still reports occasional discomfort in his left leg. - Constitutional Vitals: Temp Pulse Resp BP Pulse Ox 98.5 F 91 18 136/80 95 08/04/16 06:53 08/04/16 06:53 08/04/16 06:53 08/04/16 06:53 08/04/16 06:53 Exam: He is sitting in a chair and appears to be in pain. He has minimal discomfort on internal and external rotation of his hips. He has no obvious joint effusions or other visible abnormalities of the knee or ankle. He has mild pain on rotation at the right ankle. His muscle strength on flexion and extension against resistance at the knee joint is symmetric and produces mild pain. Straight leg raising on the right side produces pain down the entire right leg. I spoke with personnel at Dr. Bennett's office at [facility]. They do not feel further neurosurgical intervention is needed at this time. They received a faxed copy of the LS spine CT report done August 02 at [facility]. I was told Dr. Bennett will likely contact me by phone tomorrow to discuss further intervention. Internal Medicine: Result - Labs CBC & Chem 7: 07/28/16 05:15 07/24/16 05:18 - ABG Interpretation ABG results: PT/INR, D-dimer PT 14.0 Seconds (9.4-12.1) H 07/23/16 05:31 - VTE Documentation of Mechanical Device: Intermittent pneumatic compression device Consult Discharge Plan - Plan Referrals: Edward Nieto MD [Primary Care Provider] - 1 week
[2016-08-05] MEDS: *HR* OxyCODONE ER (12 HR) 10 MG TABLET PO SCH ×3 (00:31→18:03)
[2016-08-05] MEDS: Gabapentin 100 MG CAPSULE PO SCH ×3 (00:31→15:30)
[2016-08-05] MEDS: Ibuprofen 800 MG TABLET PO SCH ×3 (00:31→15:31)
[2016-08-05 05:42] LABS: Basophils % 0.8 %; Eosinophils # 0.1 K/mcL (0.0-0.6); Eosinophils % 1.7 %; Hematocrit 33.3 % (37.5-50.1); Hemoglobin 10.9 g/dL (12.9-16.9); Immature Granulocytes % 6.8 % (0-4); Lymphocytes # 1.1 K/mcL (0.6-4.6); Lymphocytes % 19.9 %; Mean Corpuscular HGB Conc 32.7 g/dL (31.6-35.5); Mean Corpuscular Hemoglobin 29.5 pg (28.0-33.3); Mean Corpuscular Volume 90.2 fL (83.0-100.0); Mean Platelet Volume 10.2 fL (9.4-12.4); Monocytes # 0.7 K/mcL (0.0-1.3); Monocytes % 13.4 %; Platelet Count 162 K/mcL (140-400); Red Blood Count 3.69 M/mcL (4.19-5.50); Red Cell Distribution Width 14.6 % (11.5-14.5); Segmented Neutrophils % 57.4 %
[2016-08-05 05:56] LABS: BUN/Creatinine Ratio 16 (6-26); Blood Urea Nitrogen 19 mg/dL (8-26); Calcium 8.9 mg/dL (8.6-10.8); Carbon Dioxide 30 mEq/L (19-29); Chloride 101 mEq/L (98-109); Glucose 150 mg/dL (70-99); Osmolality,Calculated 293 (280-300); Potassium 4.1 mEq/L (3.5-4.5); Sodium 139 mEq/L (136-145); eGFR For African Americans > 60 (> 60); eGFR For Non-African Americans > 60 (> 60)
[2016-08-05] MEDS: MethylPREDNISolone 4 MG TABLET PO SCH ×5 (06:37→20:31)
[2016-08-05] MEDS: *HR* OxyCODONE Immed Rel 5 MG TABLET PO PRN ×4 (06:37→20:31)
[2016-08-05] MEDS: Furosemide 20 MG TABLET PO SCH (09:03)
[2016-08-05] MEDS: Lactulose Oral Soln 20 GM/30 ML UDC PO SCH ×2 (09:03→20:31)
[2016-08-05] MEDS: Magnesium Oxide 400 MG TABLET PO SCH (09:04)
[2016-08-05] MEDS: Multivit/Ca/Min/Fe/FA 1 TAB TABLET PO SCH (09:05)
[2016-08-05] MEDS: Spironolactone 25 MG TABLET PO SCH (09:07)
[2016-08-05] MEDS: Finasteride 5 MG TABLET PO SCH (09:07)
[2016-08-05] MEDS: Sennosides/Docusate Sodium TABLET PO SCH ×2 (09:07→20:31)
[2016-08-05] MEDS: Cholecalciferol (D-3) 1,000 UNIT TABLET PO SCH (09:08)
[2016-08-06] MEDS: Ibuprofen 800 MG TABLET PO SCH ×3 (01:56→18:39)
[2016-08-06] MEDS: *HR* OxyCODONE ER (12 HR) 10 MG TABLET PO SCH ×3 (01:57→18:37)
[2016-08-06] MEDS: Gabapentin 100 MG CAPSULE PO SCH ×4 (01:57→18:38)
[2016-08-06] MEDS: *HR* OxyCODONE Immed Rel 5 MG TABLET PO PRN ×4 (06:51→20:42)
[2016-08-06] MEDS: MethylPREDNISolone 4 MG TABLET PO SCH ×5 (06:52→22:59)
[2016-08-06] MEDS: Spironolactone 25 MG TABLET PO SCH (09:21)
[2016-08-06] MEDS: Lactulose Oral Soln 20 GM/30 ML UDC PO SCH ×2 (09:21→20:41)
[2016-08-06] MEDS: Furosemide 20 MG TABLET PO SCH (09:22)
[2016-08-06] MEDS: Multivit/Ca/Min/Fe/FA 1 TAB TABLET PO SCH (09:23)
[2016-08-06] MEDS: Sennosides/Docusate Sodium TABLET PO SCH ×2 (09:23→20:41)
[2016-08-06] MEDS: Magnesium Oxide 400 MG TABLET PO SCH (09:23)
[2016-08-06] MEDS: Cholecalciferol (D-3) 1,000 UNIT TABLET PO SCH (09:23)
[2016-08-06] MEDS: Finasteride 5 MG TABLET PO SCH (09:24)
[2016-08-07] MEDS: Gabapentin 100 MG CAPSULE PO SCH ×3 (02:00→16:36)
[2016-08-07] MEDS: *HR* OxyCODONE ER (12 HR) 10 MG TABLET PO SCH ×3 (02:00→18:22)
[2016-08-07] MEDS: Ibuprofen 800 MG TABLET PO SCH ×3 (02:00→18:22)
[2016-08-07] MEDS: *HR* OxyCODONE Immed Rel 5 MG TABLET PO PRN ×4 (07:03→21:35)
[2016-08-07] MEDS: Sennosides/Docusate Sodium TABLET PO SCH ×2 (10:01→21:34)
[2016-08-07] MEDS: Magnesium Oxide 400 MG TABLET PO SCH (10:03)
[2016-08-07] MEDS: Spironolactone 25 MG TABLET PO SCH (10:03)
[2016-08-07] MEDS: Finasteride 5 MG TABLET PO SCH (10:04)
[2016-08-07] MEDS: Multivit/Ca/Min/Fe/FA 1 TAB TABLET PO SCH (10:04)
[2016-08-07] MEDS: Cholecalciferol (D-3) 1,000 UNIT TABLET PO SCH (10:05)
[2016-08-07] MEDS: Furosemide 20 MG TABLET PO SCH (10:05)
[2016-08-07] MEDS: Lactulose Oral Soln 20 GM/30 ML UDC PO SCH ×2 (10:06→21:34)
[2016-08-07] MEDS: MethylPREDNISolone 4 MG TABLET PO SCH ×5 (10:06→21:37)
--- NOTE | 2016-08-07 15:20 | Internal Med Progress Note ---
Date of Encounter: 08/07/16 Time of Encounter: 15:15 - Assessment and plan (1) Lumbar stenosis Current Visit: Yes Status: Acute Assessment and plan: July 24. Status post laminectomy with L5-S1 with fusion 07/14/2016. I will continue Celebrex and gabapentin. Will add OxyContin and continue when necessary oxycodone IR. July 26. Will increase OxyContin to 20 mg twice a day and continue other medicines as per present regimen. July 27. Will continue present dose OxyContin. We will change from Celebrex to Naprosyn and add Lidoderm patch daily. July 30. We will increase OxyContin to every 8 hours. Will increase prn oxycodone IR to 15 mg every 4 hours and restart lower dose Neurontin. He is scheduled to see his back surgeon at an office visit today in [place]. August 02. Continue present medication regimen. I will order CT of his LS spine. He reports plain x-ray of LSS was unremarkable in [place] August 04. Will increase Neurontin and continue Motrin, OxyContin, oxycodone IR, and Medrol dosepak taper August 07. Continue present regimen. Anticipate discharge home August 10 (2) Anemia Current Visit: Yes Status: Acute Assessment and plan: July 24. Will order anemia testing in a.m. Suspect due at least in part to cirrhosis. Thrombocytopenia is also noted. July 26. Anemia testing of July 25 reviewed. Continue to monitor CBC. August 04. Recheck labs in a.m. August 07. Hemoglobin improved to 10.9. Continue present regimen Qualifiers: Anemia type: unspecified type Qualified Code(s): D64.9 - Anemia, unspecified (3) Cirrhosis Current Visit: Yes Status: Acute Assessment and plan: July 24. Continue Xifaxan and lactulose. I will decrease HCTZ to 25 mg daily. Labs will be rechecked in a.m. July 26. We will decrease HCTZ to 12.5 mg daily. July 27. His weight remains stable. Continue present regimen Qualifiers: Hepatic cirrhosis type: unspecified hepatic cirrhosis Ascites presence: without ascites Qualified Code(s): K74.60 - Unspecified cirrhosis of liver (4) Hypomagnesemia Current Visit: Yes Status: Acute Assessment and plan: July 26. Probably secondary to HCTZ use. Will give supplemental magnesium oxide and decrease HCTZ as per above. July 30. Magnesium level was normal at 1.8 on July 28. Continue magnesium oxide and monitor labs August 04. Recheck labs in a.m. August 07. Magnesium level stable at 2.0 on August 05. Continue present med - Subjective Interval history: July 24. He reports having significant pain in his low back when he attempts to move. July 26. He reports significant pain persists July 27. He still has pain in his low back area. July 30. He states his low back pain and hip pain has not improved and perhaps worsening. August 02. He saw the orthopedic spine surgeon last week. He received a prescription for ibuprofen prn, Medrol Dosepak, and a recommendation for right hip steroid injection. He has not received the steroid injection. He reports he is having pain in his right hip, knee, and down to the foot. It has not changed over several days except perhaps slightly lessened with a higher dose narcotics. There is also some occasional discomfort in his left leg and foot. August 04. He reports his pain has not improved at all. He states it involves his low back, right hip, right knee, and extends down into the right foot. He still reports occasional discomfort in his left leg. August 07. He states this pain has significantly improved. He saw Dr. Bennett yesterday. Dr. Bennett called me after the visit and we had a lengthy discussion about his status and future plan of care - Constitutional Vitals: Temp Pulse Resp BP Pulse Ox 97.6 F 71 16 118/68 94 L 08/07/16 06:42 08/07/16 06:42 08/07/16 06:42 08/07/16 06:42 08/07/16 06:42 Exam: He is walking in his room and appears in minimal discomfort at present time. Affect is much more bright and cheerful. I reviewed his medications and lab results. Internal Medicine: Result - Labs CBC & Chem 7: 08/05/16 05:15 08/05/16 05:15 - ABG Interpretation ABG results: PT/INR, D-dimer PT 14.0 Seconds (9.4-12.1) H 07/23/16 05:31 - VTE Documentation of Mechanical Device: Intermittent pneumatic compression device Consult Discharge Plan - Plan Referrals: Edward Nieto MD [Primary Care Provider] - 1 week
[2016-08-08] MEDS: Gabapentin 100 MG CAPSULE PO SCH ×3 (00:55→16:38)
[2016-08-08] MEDS: *HR* OxyCODONE ER (12 HR) 10 MG TABLET PO SCH ×3 (00:55→16:39)
[2016-08-08] MEDS: Ibuprofen 800 MG TABLET PO SCH ×3 (00:55→16:39)
[2016-08-08] MEDS: MethylPREDNISolone 4 MG TABLET PO SCH (06:31)
[2016-08-08] MEDS: Lactulose Oral Soln 20 GM/30 ML UDC PO SCH ×2 (08:57→20:38)
[2016-08-08] MEDS: Spironolactone 25 MG TABLET PO SCH (08:58)
[2016-08-08] MEDS: Multivit/Ca/Min/Fe/FA 1 TAB TABLET PO SCH (08:59)
[2016-08-08] MEDS: Magnesium Oxide 400 MG TABLET PO SCH (09:01)
[2016-08-08] MEDS: Furosemide 20 MG TABLET PO SCH (09:01)
[2016-08-08] MEDS: Sennosides/Docusate Sodium TABLET PO SCH ×2 (09:01→20:39)
[2016-08-08] MEDS: Cholecalciferol (D-3) 1,000 UNIT TABLET PO SCH (09:02)
[2016-08-08] MEDS: Finasteride 5 MG TABLET PO SCH (09:03)
[2016-08-08] MEDS: *HR* OxyCODONE Immed Rel 5 MG TABLET PO PRN ×2 (12:24→20:38)
[2016-08-09] MEDS: *HR* OxyCODONE ER (12 HR) 10 MG TABLET PO SCH ×3 (01:00→17:25)
[2016-08-09] MEDS: Ibuprofen 800 MG TABLET PO SCH ×3 (01:01→17:25)
[2016-08-09] MEDS: Gabapentin 100 MG CAPSULE PO SCH ×3 (01:01→17:25)
[2016-08-09] MEDS: *HR* OxyCODONE Immed Rel 5 MG TABLET PO PRN ×4 (06:41→20:14)
[2016-08-09] MEDS: Lactulose Oral Soln 20 GM/30 ML UDC PO SCH ×2 (09:36→20:18)
[2016-08-09] MEDS: Cholecalciferol (D-3) 1,000 UNIT TABLET PO SCH (09:44)
[2016-08-09] MEDS: Multivit/Ca/Min/Fe/FA 1 TAB TABLET PO SCH (09:45)
[2016-08-09] MEDS: Magnesium Oxide 400 MG TABLET PO SCH (09:45)
[2016-08-09] MEDS: Finasteride 5 MG TABLET PO SCH (09:45)
[2016-08-09] MEDS: Sennosides/Docusate Sodium TABLET PO SCH ×2 (09:45→20:26)
[2016-08-09] MEDS: Spironolactone 25 MG TABLET PO SCH (09:46)
[2016-08-09] MEDS: Furosemide 20 MG TABLET PO SCH (09:46)
[2016-08-10] MEDS ORDERED: Gabapentin 300 MG CAPSULE PO ONE (00:18)
[2016-08-10] MEDS ORDERED: *HR* OxyCODONE ER (12 HR) 10 MG TABLET PO ONE (00:19)
[2016-08-10] MEDS ORDERED: Ibuprofen 800 MG TABLET PO ONE (00:20)
[2016-08-10] MEDS: *HR* OxyCODONE ER (12 HR) 10 MG TABLET PO SCH ×2 (00:40→10:01)
[2016-08-10] MEDS: Gabapentin 100 MG CAPSULE PO SCH ×2 (00:40→09:59)
[2016-08-10] MEDS: Ibuprofen 800 MG TABLET PO SCH ×2 (00:41→09:58)
[2016-08-10] MEDS: *HR* OxyCODONE Immed Rel 5 MG TABLET PO PRN ×3 (07:08→14:45)
[2016-08-10 07:33] VITALS: BP 135/78
[2016-08-10] MEDS: Multivit/Ca/Min/Fe/FA 1 TAB TABLET PO SCH (10:00)
[2016-08-10] MEDS: Finasteride 5 MG TABLET PO SCH (10:00)
[2016-08-10] MEDS: Sennosides/Docusate Sodium TABLET PO SCH (10:00)
[2016-08-10] MEDS: Magnesium Oxide 400 MG TABLET PO SCH (10:01)
[2016-08-10] MEDS: Cholecalciferol (D-3) 1,000 UNIT TABLET PO SCH (10:01)
[2016-08-10] MEDS: Spironolactone 25 MG TABLET PO SCH (10:01)
[2016-08-10] MEDS: Furosemide 20 MG TABLET PO SCH (10:02)
[2016-08-10] MEDS: Lactulose Oral Soln 20 GM/30 ML UDC PO SCH (10:03)
--- NOTE | 2016-08-10 11:07 | Discharge Summary ---
Date of Encounter: 08/10/16 Time of Encounter: 10:50 - Discharge Diagnosis (1) Lumbar stenosis Priority: Primary Status: Acute (2) Anemia Priority: Secondary Status: Acute Qualifiers: Anemia type: unspecified type Qualified Code(s): D64.9 - Anemia, unspecified (3) Cirrhosis Priority: Secondary Status: Acute Qualifiers: Hepatic cirrhosis type: unspecified hepatic cirrhosis Ascites presence: without ascites Qualified Code(s): K74.60 - Unspecified cirrhosis of liver (4) Hypomagnesemia Priority: Secondary Status: Acute - Discharge Medications Prescriptions: Ibuprofen [Motrin] 800 mg PO Q8HR #90 tablet Lidocaine Patch [Lidoderm 5% patch] 1 each TP DAILY #30 adh..patch Magnesium Oxide [Mag-Ox] 400 mg PO DAILY #30 tablet OxyCODONE ER (12 HR) [OxyCONTIN] 30 mg PO Q8H #21 tab.er.12h Home Medications: Finasteride [Proscar] 5 mg PO DAILY #0 tablet 08/10/16 [Rx] Furosemide [Lasix] 20 mg PO DAILY tablet 08/10/16 [Rx] Gabapentin [Neurontin] 300 mg PO Q8H capsule 08/10/16 [Rx] Hydrochlorothiazide 12.5 mg PO DAILY tablet 08/10/16 [Rx] Ibuprofen [Motrin] 800 mg PO Q8HR #90 tablet 08/10/16 [Rx] Lactulose 20 gm PO BID udc 08/10/16 [Rx] Lidocaine Patch [Lidoderm 5% patch] 1 each TP DAILY #30 adh..patch 08/10/16 [Rx] Magnesium Oxide [Mag-Ox] 400 mg PO DAILY #30 tablet 08/10/16 [Rx] Omeprazole [PriLOSEC] 40 mg PO DAILY@0630 capsule. 08/10/16 [Rx] OxyCODONE ER (12 HR) [OxyCONTIN] 30 mg PO Q8H #21 tab.er.12h 08/10/16 [Rx] OxyCODONE Immed Rel [Roxicodone 5 MG] 15 mg PO Q4HR PRN #0 tablet 08/10/16 [Rx] Patient Taking Own Medication 1 each PO Q8HR PRN #0 each 08/10/16 [Rx] Propranolol [Inderal] 10 mg PO BID tablet 01/16/17 [Rx] Rifaximin [Xifaxan] 400 mg PO BID #0 tablet 08/10/16 [Rx] Sennosides/Docusate Sodium [Senna Plus] 2 each PO BID tablet 08/10/16 [Rx] Spironolactone [Aldactone] 50 mg PO DAILY tablet 08/10/16 [Rx] Allergies/Adverse Reactions: Allergies gabapentin Adverse Reaction (Verified 10/03/15 15:05) Palpitations Penicillins Adverse Reaction (Verified 10/03/15 15:05) Hives Sulfa (Sulfonamide Antibiotics) Adverse Reaction (Verified 10/03/15 15:05) Hives Date of admission: 07/22/16 14:49 Primary care physician: Edward Nieto MD Consults: 07/30/16 20:19 Consult to Physician [CONS] Routine Consulting Provider: Gus Che Reason for Consult: pt needs cortisone injection to R hip Call Completed: No 07/22/16 16:59 Consult to Occupational Therapy [CONS] Routine Comment: eval, develop, and implement plan of care Consult to Physical Therapy [CONS] Routine Comment: eval, develop, and implement plan of care Consult to [employer] [CONS] Routine Reason for SW Consult: D/C planning - Patient Status Disposition: Home, Self-Care Functional capacity at discharge: uses cane/walker Overall status at discharge: patient is progressing back to baseline - Discharge Instructions Follow Up With: Edward Nieto MD [Primary Care Provider] - 1 week - Diet and Activity Activity: as per physical therapy Diet: advance to your usual diet Hospital course: Mr. Irizarry is a 71 year old male was admitted to swing bed following [facility] hospitalization for laminectomy. Dr. Cabrera saw him on July 23 and performed the swing bed history and physical. He had physical therapy and occupational therapy evaluations with ongoing intervention. He had significant pain complaints during most of his hospital stay. Dr. Cabrera reduced his opioid dose on admission but this was gradually increased during his swing bed stay because of severe pain complaints and inability to participate in therapy adequately. He saw Dr. Bennett for a follow -up visit during his swing bed stay. I had discussions twice with Dr. Bennett by phone about his complaints of pain. Dr. Bennett stated an appointment would be arranged with painting machine operator in [place] and no attempt should be made at this time to reduce his pain medication. He was on Neurontin and Motrin as well as opioids at discharge. On August 10 arrangements were completed for him to be discharged home. I told him to call Dr. Bennett's office tomorrow to discuss follow-up visits for his complaints of ongoing low back pain. - Time Spent with Patient Total time spent providing and/or coordinating discharge services: - Constitutional Vitals: Temp Pulse Resp BP Pulse Ox 97.5 F L 71 18 135/78 97 08/10/16 07:29 08/10/16 07:29 08/10/16 07:29 08/10/16 07:29 08/10/16 07:29 - VTE Documentation of Mechanical Device: Intermittent pneumatic compression device
== END 2016-08-10 13:45 | disposition home or self-care (01) | DRG 950 ==
LOC: INPPIK 14:49
PROVIDERS: ADMIT Internal Medicine; ATTEND Internal Medicine

== ENCOUNTER 2021-07-11 18:15 | Inpatient (IN) ==
[2021-07-11] MEDS ORDERED: Ondansetron ODT 4 MG TAB.RAPDIS PO PRN (21:15)
[2021-07-11] MEDS: MORPHINE SULFATE IT SCH (21:30)
[2021-07-11] MEDS: Lactulose Oral Soln 20 GM/30 ML UDC PO SCH (21:35)
[2021-07-11] MEDS: Gabapentin 300 MG CAPSULE PO SCH (21:36)
[2021-07-12 06:47] LABS: Basophils % 0.5 %; Eosinophils # 0.2 K/mcL (0.0-0.6); Eosinophils % 5.8 %; Hematocrit 37.2 % (37.5-50.1); Hemoglobin 12.8 g/dL (12.9-16.9); Immature Granulocytes % 0.3 % (0-4); Lymphocytes # 0.8 K/mcL (0.6-4.6); Lymphocytes % 19.7 %; Mean Corpuscular HGB Conc 34.4 g/dL (31.6-35.5); Mean Corpuscular Hemoglobin 32.2 pg (28.0-33.3); Mean Corpuscular Volume 93.5 fL (83.0-100.0); Mean Platelet Volume 12.5 fL (9.4-12.4); Monocytes # 0.4 K/mcL (0.0-1.3); Monocytes % 10.8 %; Neutrophils # 2.4 K/mcL (1.6-8.9); Red Blood Count 3.98 M/mcL (4.19-5.50); Red Cell Distribution Width 14.1 % (11.5-14.5); Segmented Neutrophils % 62.9 %; White Blood Count 3.8 K/mcL (4.3-11.1)
[2021-07-12 07:10] LABS: Platelet Count 36 K/mcL (140-400)
[2021-07-12 07:31] LABS: BUN/Creatinine Ratio 14 (6-26); Blood Urea Nitrogen 17 mg/dL (8-23); Calcium 9.2 mg/dL (8.6-10.3); Carbon Dioxide 29 mEq/L (23-29); Chloride 101 mEq/L (98-107); Glucose 98 mg/dL (70-105); Osmolality,Calculated 286 (280-300); Potassium 3.7 mEq/L (3.5-5.1); Sodium 137 mEq/L (136-145); eGFR For African Americans > 60 (> 60); eGFR For Non-African Americans 58 (> 60)
[2021-07-12] MEDS: Gabapentin 300 MG CAPSULE PO SCH ×3 (09:40→21:19)
[2021-07-12] MEDS: Spironolactone 25 MG TABLET PO SCH (09:40)
[2021-07-12] MEDS: Finasteride 5 MG TABLET PO SCH (09:41)
[2021-07-12] MEDS: Furosemide 40 MG TABLET PO SCH (09:42)
[2021-07-12] MEDS: Lactulose Oral Soln 20 GM/30 ML UDC PO SCH ×3 (09:43→21:20)
[2021-07-12] MEDS: MORPHINE SULFATE IT SCH (15:03)
[2021-07-13] MEDS: Gabapentin 300 MG CAPSULE PO SCH ×3 (08:47→20:42)
[2021-07-13] MEDS: Spironolactone 25 MG TABLET PO SCH (08:48)
[2021-07-13] MEDS: Furosemide 40 MG TABLET PO SCH (08:48)
[2021-07-13] MEDS: Finasteride 5 MG TABLET PO SCH (08:49)
[2021-07-13] MEDS: Lactulose Oral Soln 20 GM/30 ML UDC PO SCH ×3 (08:50→20:42)
[2021-07-13] MEDS: MORPHINE SULFATE IT SCH (16:02)
[2021-07-13] MEDS: Melatonin 3 MG TABLET PO PRN (20:55)
[2021-07-14] MEDS: Gabapentin 300 MG CAPSULE PO SCH ×3 (07:57→21:15)
[2021-07-14] MEDS: Finasteride 5 MG TABLET PO SCH (07:57)
[2021-07-14] MEDS: Lactulose Oral Soln 20 GM/30 ML UDC PO SCH ×2 (07:57→21:15)
[2021-07-14] MEDS: Furosemide 40 MG TABLET PO SCH (07:58)
[2021-07-14] MEDS: Spironolactone 25 MG TABLET PO SCH (07:58)
[2021-07-14] MEDS ORDERED: Lactulose Oral Soln 20 GM/30 ML UDC PO ONE (14:24)
[2021-07-14] MEDS: MORPHINE SULFATE IT SCH (14:48)
[2021-07-14] MEDS: Melatonin 3 MG TABLET PO PRN (21:20)
[2021-07-15] MEDS: Spironolactone 25 MG TABLET PO SCH (11:21)
[2021-07-15] MEDS: Lactulose Oral Soln 20 GM/30 ML UDC PO SCH ×2 (11:21→21:11)
[2021-07-15] MEDS: Finasteride 5 MG TABLET PO SCH (11:21)
[2021-07-15] MEDS: Gabapentin 300 MG CAPSULE PO SCH ×3 (11:21→19:49)
[2021-07-15] MEDS: Furosemide 40 MG TABLET PO SCH (11:21)
[2021-07-15] MEDS: MORPHINE SULFATE IT SCH (15:31)
[2021-07-15] MEDS: Melatonin 3 MG TABLET PO PRN (19:48)
[2021-07-16 06:38] VITALS: BP 102/64; PULSE 61; RESP 18; TEMP 97.9; O2SAT 91
[2021-07-16] MEDS: Gabapentin 300 MG CAPSULE PO SCH (08:59)
[2021-07-16] MEDS: Lactulose Oral Soln 20 GM/30 ML UDC PO SCH (08:59)
[2021-07-16] MEDS: Finasteride 5 MG TABLET PO SCH (09:00)
[2021-07-16] MEDS: Furosemide 40 MG TABLET PO SCH (09:00)
[2021-07-16] MEDS: Spironolactone 25 MG TABLET PO SCH (09:00)
== END 2021-07-16 15:19 | disposition other institution (70) | DRG 441 ==
LOC: INPPIK 20:02
PROVIDERS: ADMIT Internal Medicine; ATTEND Internal Medicine

== ENCOUNTER 2021-07-24 19:13 | Inpatient (IN) ==
[2021-07-25] MEDS: MORPHINE SULFATE IT SCH (18:12)
[2021-07-25] MEDS: Lactulose Oral Soln 20 GM/30 ML UDC PO SCH (21:02)
[2021-07-25] MEDS: Gabapentin 300 MG CAPSULE PO SCH (21:02)
[2021-07-25] MEDS: Melatonin 3 MG TABLET PO PRN (21:02)
[2021-07-26] MEDS: Lactulose Oral Soln 20 GM/30 ML UDC PO SCH ×2 (08:11→21:12)
[2021-07-26] MEDS: Finasteride 5 MG TABLET PO SCH (08:11)
[2021-07-26] MEDS: Spironolactone 25 MG TABLET PO SCH (08:12)
[2021-07-26] MEDS: Furosemide 40 MG TABLET PO SCH (08:12)
[2021-07-26] MEDS: Gabapentin 300 MG CAPSULE PO SCH ×3 (08:12→21:11)
[2021-07-26] MEDS: MORPHINE SULFATE IT SCH (16:23)
[2021-07-26] MEDS: Melatonin 3 MG TABLET PO PRN (21:11)
[2021-07-27 09:33] LABS: Basophils % 0.8 %; Eosinophils # 0.3 K/mcL (0.0-0.6); Eosinophils % 6.4 %; Hematocrit 35.8 % (37.5-50.1); Hemoglobin 12.5 g/dL (12.9-16.9); Immature Granulocytes % 0.3 % (0-4); Lymphocytes # 1.1 K/mcL (0.6-4.6); Lymphocytes % 27.6 %; Mean Corpuscular HGB Conc 34.9 g/dL (31.6-35.5); Mean Corpuscular Hemoglobin 32.4 pg (28.0-33.3); Mean Corpuscular Volume 92.7 fL (83.0-100.0); Mean Platelet Volume 10.5 fL (9.4-12.4); Monocytes # 0.3 K/mcL (0.0-1.3); Monocytes % 6.9 %; Neutrophils # 2.3 K/mcL (1.6-8.9); Red Blood Count 3.86 M/mcL (4.19-5.50); Red Cell Distribution Width 14.6 % (11.5-14.5); White Blood Count 3.9 K/mcL (4.3-11.1)
[2021-07-27 09:34] LABS: Platelet Count 72 K/mcL (140-400)
[2021-07-27 09:52] LABS: Alanine Aminotransferase 49 Units/L (7-52); Albumin 2.9 g/dL (3.5-5.7); Albumin/Globulin Ratio 1.3 (1.1-2.2); Alkaline Phosphatase 100 Units/L (34-104); Aspartate Amino Transferase 53 Units/L (13-39); BUN/Creatinine Ratio 8 (6-26); Bilirubin,Total 1.8 mg/dL (0.3-1.0); Blood Urea Nitrogen 9 mg/dL (8-23); Calcium 8.4 mg/dL (8.6-10.3); Carbon Dioxide 30 mEq/L (23-29); Chloride 103 mEq/L (98-107); Globulin 2.2 g/dL (2.4-3.5); Glucose 140 mg/dL (70-105); Osmolality,Calculated 287 (280-300); Potassium 3.6 mEq/L (3.5-5.1); Sodium 138 mEq/L (136-145); Total Protein 5.1 g/dL (6.4-8.9); eGFR For African Americans > 60 (> 60); eGFR For Non-African Americans > 60 (> 60)
[2021-07-27] MEDS: Gabapentin 300 MG CAPSULE PO SCH ×3 (10:08→20:31)
[2021-07-27] MEDS: Lactulose Oral Soln 20 GM/30 ML UDC PO SCH ×2 (10:09→13:36)
[2021-07-27] MEDS: Furosemide 40 MG TABLET PO SCH (10:09)
[2021-07-27] MEDS: Finasteride 5 MG TABLET PO SCH (10:09)
[2021-07-27] MEDS: Spironolactone 25 MG TABLET PO SCH (10:11)
[2021-07-27] MEDS ORDERED: Magnesium Oxide 400 MG TABLET PO ONE (12:22)
[2021-07-27] MEDS: MORPHINE SULFATE IT SCH (16:43)
[2021-07-27] MEDS ORDERED: Lactulose Oral Soln 20 GM/30 ML UDC PO ONE (18:00)
[2021-07-27] MEDS: Melatonin 3 MG TABLET PO PRN (20:30)
[2021-07-28] MEDS: Spironolactone 25 MG TABLET PO SCH (09:17)
[2021-07-28] MEDS: Finasteride 5 MG TABLET PO SCH (09:17)
[2021-07-28] MEDS: Gabapentin 300 MG CAPSULE PO SCH ×3 (09:17→21:36)
[2021-07-28] MEDS: Lactulose Oral Soln 20 GM/30 ML UDC PO SCH ×2 (09:17→14:24)
[2021-07-28] MEDS: Furosemide 40 MG TABLET PO SCH (09:17)
[2021-07-28] MEDS: MORPHINE SULFATE IT SCH (21:36)
[2021-07-28] MEDS: Melatonin 3 MG TABLET PO PRN (21:42)
[2021-07-29] MEDS ORDERED: Lactulose Oral Soln 20 GM/30 ML UDC PO ONE (11:05)
[2021-07-29] MEDS: Furosemide 40 MG TABLET PO SCH (11:57)
[2021-07-29] MEDS: Spironolactone 25 MG TABLET PO SCH (11:57)
[2021-07-29] MEDS: Gabapentin 300 MG CAPSULE PO SCH ×3 (11:57→21:25)
[2021-07-29] MEDS: Lactulose Oral Soln 20 GM/30 ML UDC PO SCH ×2 (11:57→15:08)
[2021-07-29] MEDS: Finasteride 5 MG TABLET PO SCH (11:57)
[2021-07-29 12:33] LABS: BUN/Creatinine Ratio 6 (6-26); Blood Urea Nitrogen 7 mg/dL (8-23); Calcium 8.9 mg/dL (8.6-10.3); Carbon Dioxide 34 mEq/L (23-29); Chloride 100 mEq/L (98-107); Glucose 135 mg/dL (70-105); Osmolality,Calculated 288 (280-300); Potassium 2.9 mEq/L (3.5-5.1); Sodium 139 mEq/L (136-145); eGFR For African Americans > 60 (> 60); eGFR For Non-African Americans > 60 (> 60)
[2021-07-29] MEDS: MORPHINE SULFATE IT SCH (15:32)
[2021-07-29 18:52] LABS: Bilirubin,Urine Negative (Negative); Blood,Urine Large (Negative); Clarity,Urine Slightly Cloudy (Clear); Color,Urine Yellow (Yellow); Glucose,Urine (UA) Normal (Normal); Ketones,Urine Trace mg/dL (Negative); Leukocyte Esterase,Urine Negative (Negative); Nitrite,Urine Negative (Negative); Protein,Urine Trace mg/dL (Neg-Trace); Specific Gravity,Urine 1.025 (1.010-1.025); Urobilinogen,Urine Normal (Normal)
[2021-07-29 18:59] LABS: Calcium Oxalate Crystals,Urine Present per hpf; RBC,Urine 50-100 per hpf (0-3); Squamous Epithelial Cell,Urine Few per hpf (None-Few)
[2021-07-29 19:00] LABS: Hyaline Casts,Urine Few per lpf (None Seen); Mucus,Urine Few per lpf (None-Few)
[2021-07-29] MEDS: Melatonin 3 MG TABLET PO PRN (21:25)
[2021-07-30] MEDS: Gabapentin 300 MG CAPSULE PO SCH ×3 (08:57→23:09)
[2021-07-30] MEDS: Finasteride 5 MG TABLET PO SCH (08:58)
[2021-07-30] MEDS: Furosemide 40 MG TABLET PO SCH (08:58)
[2021-07-30] MEDS: Spironolactone 25 MG TABLET PO SCH (08:58)
[2021-07-30] MEDS: Lactulose Oral Soln 20 GM/30 ML UDC PO SCH ×2 (08:58→14:16)
[2021-07-30 09:19] LABS: Hematocrit 33.9 % (37.5-50.1); Hemoglobin 11.6 g/dL (12.9-16.9); Mean Corpuscular HGB Conc 34.2 g/dL (31.6-35.5); Mean Corpuscular Hemoglobin 32.2 pg (28.0-33.3); Mean Corpuscular Volume 94.2 fL (83.0-100.0); Mean Platelet Volume 10.9 fL (9.4-12.4); Red Cell Distribution Width 14.6 % (11.5-14.5)
[2021-07-30 09:37] LABS: Platelet Count 59 K/mcL (140-400)
[2021-07-30 09:47] LABS: BUN/Creatinine Ratio 6 (6-26); Blood Urea Nitrogen 7 mg/dL (8-23); Calcium 8.9 mg/dL (8.6-10.3); Carbon Dioxide 34 mEq/L (23-29); Chloride 99 mEq/L (98-107); Glucose 131 mg/dL (70-105); Magnesium 1.5 mg/dL (1.6-2.6); Osmolality,Calculated 286 (280-300); Potassium 3.3 mEq/L (3.5-5.1); Sodium 138 mEq/L (136-145); eGFR For African Americans > 60 (> 60); eGFR For Non-African Americans > 60 (> 60)
[2021-07-30] MEDS: MORPHINE SULFATE IT SCH (14:22)
[2021-07-30] MEDS: Melatonin 3 MG TABLET PO PRN (23:09)
[2021-07-31] MEDS: Furosemide 40 MG TABLET PO SCH (09:23)
[2021-07-31] MEDS: Lactulose Oral Soln 20 GM/30 ML UDC PO SCH ×3 (09:23→20:57)
[2021-07-31] MEDS: Finasteride 5 MG TABLET PO SCH (09:23)
[2021-07-31] MEDS: Gabapentin 300 MG CAPSULE PO SCH ×3 (09:24→20:57)
[2021-07-31] MEDS: Spironolactone 25 MG TABLET PO SCH (09:24)
[2021-07-31] MEDS: Magnesium Oxide 400 MG TABLET PO SCH (09:24)
[2021-07-31] MEDS: MORPHINE SULFATE IT SCH (16:28)
[2021-07-31] MEDS ORDERED: Lactulose Oral Soln 20 GM/30 ML UDC PO ONE (16:47)
[2021-07-31] MEDS: Ondansetron ODT 4 MG TAB.RAPDIS SL PRN (18:13)
[2021-07-31] MEDS: Melatonin 3 MG TABLET PO PRN (20:56)
[2021-07-31] MEDS ORDERED: *HR* OxyCODONE/APAP 5/325 TABLET PO ONE (21:27)
[2021-08-01] MEDS: Lactulose Oral Soln 20 GM/30 ML UDC PO SCH ×3 (07:58→20:37)
[2021-08-01] MEDS: Magnesium Oxide 400 MG TABLET PO SCH (07:58)
[2021-08-01] MEDS: Gabapentin 300 MG CAPSULE PO SCH ×3 (07:59→20:37)
[2021-08-01] MEDS: Finasteride 5 MG TABLET PO SCH (07:59)
[2021-08-01] MEDS: Furosemide 40 MG TABLET PO SCH (07:59)
[2021-08-01] MEDS: Spironolactone 25 MG TABLET PO SCH (07:59)
[2021-08-01 08:57] LABS: Hematocrit 39.1 % (37.5-50.1); Hemoglobin 13.3 g/dL (12.9-16.9); Mean Corpuscular Hemoglobin 32.1 pg (28.0-33.3); Mean Corpuscular Volume 94.4 fL (83.0-100.0); Mean Platelet Volume 10.1 fL (9.4-12.4); Red Blood Count 4.14 M/mcL (4.19-5.50); Red Cell Distribution Width 14.4 % (11.5-14.5); White Blood Count 4.8 K/mcL (4.3-11.1)
[2021-08-01] MEDS ORDERED: Lactulose Oral Soln 20 GM/30 ML UDC PO SCH (09:00)
[2021-08-01 09:04] LABS: Platelet Count 66 K/mcL (140-400)
[2021-08-01 09:17] LABS: Alanine Aminotransferase 47 Units/L (7-52); Albumin/Globulin Ratio 1.3 (1.1-2.2); Alkaline Phosphatase 69 Units/L (34-104); Aspartate Amino Transferase 48 Units/L (13-39); BUN/Creatinine Ratio 8 (6-26); Blood Urea Nitrogen 10 mg/dL (8-23); Calcium 9.2 mg/dL (8.6-10.3); Carbon Dioxide 36 mEq/L (23-29); Chloride 99 mEq/L (98-107); Globulin 2.4 g/dL (2.4-3.5); Glucose 110 mg/dL (70-105); Osmolality,Calculated 288 (280-300); Potassium 3.6 mEq/L (3.5-5.1); Sodium 139 mEq/L (136-145); Total Protein 5.4 g/dL (6.4-8.9); eGFR For African Americans > 60 (> 60); eGFR For Non-African Americans 57 (> 60)
[2021-08-01] MEDS: MORPHINE SULFATE IT SCH (17:01)
[2021-08-01] MEDS: Melatonin 3 MG TABLET PO PRN (21:46)
[2021-08-02] MEDS: Gabapentin 300 MG CAPSULE PO SCH ×3 (09:37→21:24)
[2021-08-02] MEDS: Magnesium Oxide 400 MG TABLET PO SCH (09:37)
[2021-08-02] MEDS: Finasteride 5 MG TABLET PO SCH (09:37)
[2021-08-02] MEDS: Furosemide 40 MG TABLET PO SCH (09:39)
[2021-08-02] MEDS: Spironolactone 25 MG TABLET PO SCH (09:39)
[2021-08-02] MEDS: Lactulose Oral Soln 20 GM/30 ML UDC PO SCH ×3 (09:40→21:23)
[2021-08-02] MEDS: MORPHINE SULFATE IT SCH (15:37)
[2021-08-02] MEDS: Melatonin 3 MG TABLET PO PRN (21:24)
[2021-08-03] MEDS: Gabapentin 300 MG CAPSULE PO SCH ×3 (08:10→21:42)
[2021-08-03] MEDS: Lactulose Oral Soln 20 GM/30 ML UDC PO SCH ×3 (08:10→21:42)
[2021-08-03] MEDS: Spironolactone 25 MG TABLET PO SCH (08:10)
[2021-08-03] MEDS: Finasteride 5 MG TABLET PO SCH (08:10)
[2021-08-03] MEDS: Magnesium Oxide 400 MG TABLET PO SCH (08:10)
[2021-08-03] MEDS: Furosemide 40 MG TABLET PO SCH (08:10)
[2021-08-03] MEDS: Ondansetron ODT 4 MG TAB.RAPDIS SL PRN (09:13)
[2021-08-03] MEDS: MORPHINE SULFATE IT SCH (16:21)
[2021-08-03] MEDS: Melatonin 3 MG TABLET PO PRN (21:42)
[2021-08-04] MEDS: Magnesium Oxide 400 MG TABLET PO SCH (08:07)
[2021-08-04] MEDS: Furosemide 40 MG TABLET PO SCH (08:07)
[2021-08-04] MEDS: Finasteride 5 MG TABLET PO SCH (08:07)
[2021-08-04] MEDS: Lactulose Oral Soln 20 GM/30 ML UDC PO SCH ×3 (08:08→21:01)
[2021-08-04] MEDS: Spironolactone 25 MG TABLET PO SCH (08:08)
[2021-08-04] MEDS: Gabapentin 300 MG CAPSULE PO SCH ×3 (08:08→14:22)
[2021-08-04] MEDS: MORPHINE SULFATE IT SCH (16:59)
[2021-08-04] MEDS: Melatonin 3 MG TABLET PO PRN (22:01)
[2021-08-05] MEDS: Lactulose Oral Soln 20 GM/30 ML UDC PO SCH ×3 (08:08→20:49)
[2021-08-05] MEDS: Furosemide 40 MG TABLET PO SCH (08:08)
[2021-08-05] MEDS: Gabapentin 300 MG CAPSULE PO SCH ×3 (08:08→20:49)
[2021-08-05] MEDS: Magnesium Oxide 400 MG TABLET PO SCH (08:09)
[2021-08-05] MEDS: Finasteride 5 MG TABLET PO SCH (08:09)
[2021-08-05] MEDS: Spironolactone 25 MG TABLET PO SCH (08:09)
[2021-08-05 08:33] LABS: Hematocrit 42.1 % (37.5-50.1); Hemoglobin 13.8 g/dL (12.9-16.9); Mean Corpuscular HGB Conc 32.8 g/dL (31.6-35.5); Mean Corpuscular Hemoglobin 31.8 pg (28.0-33.3); Mean Platelet Volume 10.8 fL (9.4-12.4); Red Blood Count 4.34 M/mcL (4.19-5.50); White Blood Count 4.6 K/mcL (4.3-11.1)
[2021-08-05 08:38] LABS: Platelet Count 65 K/mcL (140-400)
[2021-08-05 08:59] LABS: Alanine Aminotransferase 49 Units/L (7-52); Albumin/Globulin Ratio 1.1 (1.1-2.2); Alkaline Phosphatase 72 Units/L (34-104); Aspartate Amino Transferase 51 Units/L (13-39); BUN/Creatinine Ratio 10 (6-26); Bilirubin,Direct 0.4 mg/dL (0.0-0.2); Bilirubin,Indirect 1.3 mg/dL (0.0-1.0); Bilirubin,Total 1.7 mg/dL (0.3-1.0); Blood Urea Nitrogen 14 mg/dL (8-23); Calcium 9.1 mg/dL (8.6-10.3); Carbon Dioxide 38 mEq/L (23-29); Chloride 101 mEq/L (98-107); Globulin 2.8 g/dL (2.4-3.5); Glucose 94 mg/dL (70-105); Osmolality,Calculated 292 (280-300); Potassium 4.3 mEq/L (3.5-5.1); Sodium 141 mEq/L (136-145); Total Protein 5.8 g/dL (6.4-8.9); eGFR For African Americans > 60 (> 60); eGFR For Non-African Americans 51 (> 60)
[2021-08-05] MEDS: MORPHINE SULFATE IT SCH (17:07)
[2021-08-05] MEDS: Melatonin 3 MG TABLET PO PRN (20:49)
[2021-08-06] MEDS: Magnesium Oxide 400 MG TABLET PO SCH (09:00)
[2021-08-06] MEDS: Spironolactone 25 MG TABLET PO SCH (09:01)
[2021-08-06] MEDS: Finasteride 5 MG TABLET PO SCH (09:01)
[2021-08-06] MEDS: Gabapentin 300 MG CAPSULE PO SCH ×3 (09:01→19:50)
[2021-08-06] MEDS: Furosemide 40 MG TABLET PO SCH (09:01)
[2021-08-06] MEDS: Lactulose Oral Soln 20 GM/30 ML UDC PO SCH ×3 (09:01→19:50)
[2021-08-06] MEDS: MORPHINE SULFATE IT SCH (16:06)
[2021-08-06] MEDS: Ondansetron ODT 4 MG TAB.RAPDIS SL PRN (17:07)
[2021-08-06] MEDS: Melatonin 3 MG TABLET PO PRN (19:49)
[2021-08-07] MEDS: Lactulose Oral Soln 20 GM/30 ML UDC PO SCH ×3 (09:13→20:57)
[2021-08-07] MEDS: Gabapentin 300 MG CAPSULE PO SCH ×3 (09:14→20:58)
[2021-08-07] MEDS: Spironolactone 25 MG TABLET PO SCH (09:14)
[2021-08-07] MEDS: Magnesium Oxide 400 MG TABLET PO SCH (09:14)
[2021-08-07] MEDS: Furosemide 40 MG TABLET PO SCH (09:14)
[2021-08-07] MEDS: Finasteride 5 MG TABLET PO SCH (09:15)
[2021-08-07] MEDS: MORPHINE SULFATE IT SCH (18:30)
[2021-08-07] MEDS: Melatonin 3 MG TABLET PO PRN (20:58)
[2021-08-08] MEDS: Furosemide 40 MG TABLET PO SCH (09:26)
[2021-08-08] MEDS: Spironolactone 25 MG TABLET PO SCH (09:26)
[2021-08-08] MEDS: Gabapentin 300 MG CAPSULE PO SCH ×3 (09:26→20:15)
[2021-08-08] MEDS: Finasteride 5 MG TABLET PO SCH (09:27)
[2021-08-08] MEDS: Magnesium Oxide 400 MG TABLET PO SCH (09:27)
[2021-08-08] MEDS: Lactulose Oral Soln 20 GM/30 ML UDC PO SCH ×3 (09:27→20:15)
[2021-08-08] MEDS: MORPHINE SULFATE IT SCH (15:44)
[2021-08-08] MEDS: Melatonin 3 MG TABLET PO PRN (20:15)
[2021-08-09 07:57] VITALS: BP 109/64; PULSE 64; RESP 18; TEMP 98.2; O2SAT 98
[2021-08-09] MEDS: Gabapentin 300 MG CAPSULE PO SCH (08:41)
[2021-08-09] MEDS: Finasteride 5 MG TABLET PO SCH (08:41)
[2021-08-09] MEDS: Spironolactone 25 MG TABLET PO SCH (08:41)
[2021-08-09] MEDS: Lactulose Oral Soln 20 GM/30 ML UDC PO SCH (08:41)
[2021-08-09] MEDS: Magnesium Oxide 400 MG TABLET PO SCH (08:41)
[2021-08-09] MEDS: Furosemide 40 MG TABLET PO SCH (08:41)
== END 2021-08-09 12:36 | disposition home health service (06) | DRG 442 ==
LOC: INPPIK 07-25 17:10
PROVIDERS: ADMIT Internal Medicine; ATTEND Internal Medicine